=== PATIENT | female | born 1955 | race Caucasian/White ===

== ENCOUNTER 2016-04-14 09:19 | Day surgery (SDC) | payer OTHER ==
[~2016-04-14 09:19] MED LIST: Kenalog-40 IM ONE; LIDOCAINE HCL 2% 100 MG/5 ML IJ ONE; Sensorcaine 0.25% 10 ML IJ ONE
[2016-04-14] MEDS ORDERED: DIPRIVAN 200 MG/20 ML IV ONE (10:00)
[2016-04-14] MEDS ORDERED: Lactated Ringers 1,000 ML IV SCH (10:30)
[2016-04-14] MEDS ORDERED: Lactated Ringers 1,000 ML IV ONE (10:49)
[2016-04-14 11:59] VITALS: BP 112/69; PULSE 84; O2SAT 98
--- NOTE | 2016-04-14 14:06 | XRAY ---
Indication: Left SI injection. Intraoperative fluoroscopy was provided for 25 seconds. 2 digital spot images submitted for interpretation demonstrates a posterior spinal needle with the tip projecting over the left SI joint superiorly. Small amount of contrast injected for needle tip placement. Correlate with intraoperative findings/report.
--- NOTE | 2016-04-14 14:50 | XRAY ---
25 seconds fluoroscopy time in surgery for left S1 ARIES.
== END 2016-04-14 13:45 | disposition home or self-care (01) ==
LOC: SDC-PAIN 09:19
PROVIDERS: ATTEND Pain Medicine Interventional Pain Medicine
DX: M47.816 Spondylosis without myelopathy or radiculopathy, lumbar region (principal); M54.5 Low back pain; M51.36 Other intervertebral disc degeneration, lumbar region; Z79.891 Long term (current) use of opiate analgesic
CPT/HCPCS: 01992; 27096; 72020; 77003; J2704; J3301; Q9967

== ENCOUNTER 2017-04-06 09:37 | Day surgery (SDC) | payer OTHER ==
[2017-04-06] MEDS ORDERED: DIPRIVAN 200 MG/20 ML IV ONE (09:38)
[2017-04-06] MEDS ORDERED: Marcaine 0.5% SDV 10 ML IJ ONE (09:38)
[2017-04-06] MEDS ORDERED: Lactated Ringers 1,000 ML IV ONE (09:38)
[2017-04-06] MEDS ORDERED: Xylocaine 1% Vial 30 ML PF IJ ONE (09:38)
--- NOTE | 2017-04-06 12:54 | XRAY ---
27 seconds fluoroscopy time in surgery for left side L3-5 MBB.
--- NOTE | 2017-04-06 14:13 | XRAY ---
Indication: Left L3-L5 MBB. Intraoperative fluoroscopy was provided for 27 seconds. 3 digital spot images submitted for interpretation demonstrates posterior spinal needle tips projecting over the expected course of the left L3, L4, and L5 nerve roots. Correlate with intraoperative findings/report.
--- NOTE | 2017-04-06 15:18 | OP ---
DATE OF PROCEDURE: 04/06/2017 1202 SURGEON: Nellie Mason D.O. PREOPERATIVE DIAGNOSIS: 1. Degenerative lumbar spine disease, spondylosis, low back pain. POSTOPERATIVE DIAGNOSIS: 1. Degenerative lumbar spine disease, spondylosis, low back pain. PROCEDURE PERFORMED: Left L5, L4, L3 medial branch blocks under fluoroscopic guidance. DESCRIPTION OF THE PROCEDURE: The patient was taken to the operating room and placed in the prone position on the table. Skin at the injection site was prepped and draped in sterile fashion. Under fluoroscopy, bony anatomy of the targeted injection site was visualized. Induction agent was given as per anesthesia while vital signs were monitored. Local anesthetic agent of 2 cc, 1% Lidocaine was introduced to anesthetize the skin and the subcutaneous tissue through the injection site. Under fluoroscopic guidance, a #20 gauge standard spinal needle was advanced into the target medial branch through the oblique approach. 1 cc of 2% preservative-free Lidocaine was injected into each of the targeted medial branch nerve. After the needle was being removed, the skin was cleansed with alcohol and then a bandage was applied. No complications or adverse consequences were observed. The patient was returned to the holding area until stabilized before discharge to home. After the patient has been fully recovered from anesthesia, the patient states 100% pain reduction after this procedure. The patient will be followed up within ten days after the injection for re-evaluation.
== END 2017-04-06 12:55 | disposition home or self-care (01) ==
LOC: SDC-PAIN 09:37
PROVIDERS: ATTEND Internal Medicine
DX: M46.96 Unspecified inflammatory spondylopathy, lumbar region (principal); M54.5 Low back pain; M15.9 Polyosteoarthritis, unspecified; Z79.891 Long term (current) use of opiate analgesic
CPT/HCPCS: 64493; 64494; 72020; 77003; J2001; J2704

== ENCOUNTER 2017-05-11 08:45 | Day surgery (SDC) | payer OTHER ==
[2017-05-11] MEDS ORDERED: Xylocaine-Mpf 2% 5 Ml Vial IJ ONE (08:46)
[2017-05-11] MEDS ORDERED: Marcaine 0.5% SDV 10 ML IJ ONE (08:46)
[2017-05-11] MEDS ORDERED: Ketamine HCl 50 MG/ML IV ONE (08:46)
[2017-05-11] MEDS ORDERED: DIPRIVAN 200 MG/20 ML IV ONE (08:46)
[2017-05-11] MEDS ORDERED: Lactated Ringers 1,000 ML IV ONE (08:46)
--- NOTE | 2017-05-11 10:22 | XRAY ---
25 seconds fluoroscopy time in surgery for left L3-4, L4-5, and L5-S1 MBB.
--- NOTE | 2017-05-11 10:48 | XRAY ---
Indication: Left L3-S1 MBB. Intraoperative fluoroscopy was provided for 25 seconds. 3 digital spot images submitted for interpretation demonstrates posterior spinal needle tips projecting over the left L3/L4/L5 pedicles. Correlate with intraoperative findings/report.
--- NOTE | 2017-05-12 09:51 | OP ---
DATE OF PROCEDURE: 05/11/2017 0957 SURGEON: Nellie Mason D.O. PREOPERATIVE DIAGNOSIS: Degenerative lumbar spine disease, spondylosis, low back pain. POSTOPERATIVE DIAGNOSIS: Degenerative lumbar spine disease, spondylosis, low back pain. PROCEDURE PERFORMED: Left L5, L4, L3 medial branch block under fluoroscopic guidance. DESCRIPTION OF THE PROCEDURE: The patient was taken to the operating room and placed in the prone position on the table. Skin at the injection site was prepped and draped in sterile fashion. Under fluoroscopy, bony anatomy of the targeted injection site was visualized. Induction agent was given as per anesthesia while vital signs were monitored. Local anesthetic agent of 0.5 cc of 1% lidocaine preservative free was introduced to anesthetize the skin and the subcutaneous tissue through the injection site. Under fluoroscopic guidance, a #20 gauge standard spinal needle was advanced into the target medial branch through the oblique approach. The preservative free 0.5 cc of 1% lidocaine and 0.5 cc of 0.25% Marcaine were injected into each of the targeted medial branch nerve. After the needle was being removed, the skin was cleansed with alcohol and then a bandage was applied. No complications or adverse consequences were observed. The patient was returned to the holding area until stabilized before discharge to home. After the procedure the residual pain is 0 out of 10 and there is no muscle weakness after the procedure and the patient is ambulating well. The patient will be followed up within ten days after the injection for re-evaluation.
== END 2017-05-11 10:33 | disposition home or self-care (01) ==
LOC: SDC-PAIN 08:45
PROVIDERS: ATTEND Internal Medicine
DX: M46.96 Unspecified inflammatory spondylopathy, lumbar region (principal); M51.36 Other intervertebral disc degeneration, lumbar region; Z79.891 Long term (current) use of opiate analgesic
CPT/HCPCS: 64493; 64494; 64495; 72020; 76000; J2704

== ENCOUNTER 2017-06-29 12:01 | Day surgery (SDC) | payer OTHER ==
[2017-06-29] MEDS ORDERED: Marcaine 0.5% SDV 10 ML IJ ONE (12:02)
[2017-06-29] MEDS ORDERED: DIPRIVAN 200 MG/20 ML IV ONE (12:02)
[2017-06-29] MEDS ORDERED: Xylocaine 1% Vial 30 ML PF IJ ONE (12:02)
[2017-06-29] MEDS ORDERED: Lactated Ringers 1,000 ML IV ONE (14:54)
--- NOTE | 2017-06-29 16:24 | XRAY ---
Indication: Left L3-L4-L5 RFA. Intraoperative fluoroscopy was provided for 32 seconds. 2 digital spot images submitted for interpretation demonstrates posterior spinal needle tips projecting over the expected course of the left L3, L4, and L5 nerve roots. Correlate with intraoperative findings/report.
--- NOTE | 2017-06-29 16:30 | XRAY ---
32 seconds fluoroscopy time in surgery for left RFA L3-5.
--- NOTE | 2017-06-30 09:04 | OP ---
DATE OF PROCEDURE: 06/29/2017 1410 SURGEON: Nellie Mason D.O. PREOPERATIVE DIAGNOSIS: Degenerative lumbosacral spine disease, spondylosis, low back pain. POSTOPERATIVE DIAGNOSIS: Degenerative lumbosacral spine disease, spondylosis, low back pain. PROCEDURES PERFORMED: Left L5, L4 and L3 medial branch radiofrequency ablation under fluoroscopic guidance. DESCRIPTION OF PROCEDURE: The patient was taken to the operating room and laid in the prone position on the table. The skin over the injection site was prepped and draped in sterile fashion. Under fluoroscopy bony anatomy of the target injection site was visualized. Induction agent was given as per anesthesia while vital signs were monitored. Local anesthetic agent used is 16.5 cc of 1% preservative-free lidocaine and the medication used for radiofrequency ablation is 1.5 cc of preservative-free 0.5% Marcaine was introduced to anesthetize the skin and the subcutaneous tissue through the injection site. Under fluoroscopic guidance a standard size spinal needle with cannula was advanced into the target medial branch nerve as per standard protocol. Before the radiofrequency ablation motor and sensory nerve testing was conducted as per protocol. Under the safety guidance which ensured no motor nerves being involved, L5, L4 and L3 radiofrequency ablation was conducted at 80 degrees Celsius for 90 seconds as per standard protocol. After the spinal needle with the cannula was removed the skin was cleansed with alcohol and then a bandage was applied. No complications or adverse occurrences were observed. The patient was returned to the holding area until stabilized before being discharged to home. The preoperative pain level is 8 out of 10 and the postoperative pain level is 1 out of 10. The patient will be followed up within 10 days after the procedure for re-evaluation.
== END 2017-06-29 14:55 | disposition home or self-care (01) ==
LOC: SDC-PAIN 12:01
PROVIDERS: ATTEND Internal Medicine
DX: M46.95 Unspecified inflammatory spondylopathy, thoracolumbar region (principal); M51.36 Other intervertebral disc degeneration, lumbar region; M54.5 Low back pain; M47.816 Spondylosis without myelopathy or radiculopathy, lumbar region
CPT/HCPCS: 64635; 64636; 72020; 77003; J2001; J2704

== ENCOUNTER 2020-01-30 10:25 | Day surgery (SDC) | payer OTHER ==
[2020-01-30] MEDS ORDERED: Xylocaine 1% Vial 30 ML PF IJ ONE (10:26)
[2020-01-30] MEDS ORDERED: BUPIVACAINE 0.5% VIAL IJ ONE (10:26)
[2020-01-30] MEDS ORDERED: Depo-Medrol 40 MG/ML IM ONE (10:26)
[2020-01-30] MEDS ORDERED: DIPRIVAN 200 MG/20 ML IV ONE (12:29)
[2020-01-30] MEDS ORDERED: Ketamine HCl 50 MG/ML ONE (12:30)
--- NOTE | 2020-01-30 13:40 | XRAY ---
Indication: Left L4-S1 RFA. Intraoperative fluoroscopy was provided for 22 seconds. 3 digital spot images submitted for interpretation demonstrates posterior needle tips projecting over the expected left L4-S1 nerve roots. Correlate with intraoperative findings/report.
--- NOTE | 2020-01-30 13:49 | XRAY ---
22 seconds fluoroscopy time in surgery for left L4-S1 RFA.
[2020-01-30] MEDS ORDERED: Lactated Ringers 1,000 ML IV ONE (15:30)
== END 2020-01-30 13:02 | disposition home or self-care (01) ==
LOC: SDC-PAIN 10:25
PROVIDERS: ATTEND Psychiatry & Neurology Pain Medicine
DX: M47.817 Spondylosis without myelopathy or radiculopathy, lumbosacral region (principal); I10 Essential (primary) hypertension; E03.9 Hypothyroidism, unspecified; L40.9 Psoriasis, unspecified; F41.8 Other specified anxiety disorders; Z79.899 Other long term (current) drug therapy
CPT/HCPCS: 64635; 64636; 72100; 77002; J1030; J2001; J2704

== ENCOUNTER 2020-02-06 10:50 | Day surgery (SDC) | payer OTHER ==
[2020-02-06] MEDS ORDERED: DIPRIVAN 200 MG/20 ML IV ONE (12:03)
[2020-02-06] MEDS ORDERED: Ketamine HCl 50 MG/ML ONE (12:03)
--- NOTE | 2020-02-06 15:02 | XRAY ---
Indication: Right L4-S1 RFA. Intraoperative fluoroscopy was provided for 24 seconds. 3 digital spot images submitted for interpretation demonstrates posterior needle tips projecting over the expected right L4-S1 nerve roots. Correlate with intraoperative findings/report.
--- NOTE | 2020-02-06 15:21 | XRAY ---
24 seconds fluoroscopy time in surgery for right L4-S1 RFA.
[2020-02-06] MEDS ORDERED: Lactated Ringers 1,000 ML IV ONE (16:05)
== END 2020-02-06 12:42 | disposition home or self-care (01) ==
LOC: SDC-PAIN 10:50
PROVIDERS: ATTEND Psychiatry & Neurology Pain Medicine
DX: M47.816 Spondylosis without myelopathy or radiculopathy, lumbar region (principal); I10 Essential (primary) hypertension; E03.9 Hypothyroidism, unspecified; L40.9 Psoriasis, unspecified; F41.8 Other specified anxiety disorders; Z79.899 Other long term (current) drug therapy
CPT/HCPCS: 64635; 64636; 72100; 77002; J2704

== ENCOUNTER 2020-03-26 10:05 | Day surgery (SDC) | payer OTHER ==
[2020-03-26] MEDS ORDERED: Xylocaine 1% Vial 30 ML PF IJ ONE (10:06)
[2020-03-26] MEDS ORDERED: BUPIVACAINE 0.5% VIAL IJ ONE (10:06)
[2020-03-26] MEDS ORDERED: Decadron 4 MG INJ IV ONE (10:06)
[2020-03-26] MEDS ORDERED: Depo-Medrol 40 MG/ML IM ONE (10:06)
[2020-03-26] MEDS ORDERED: Ketamine HCl 50 MG/ML ONE (12:40)
[2020-03-26] MEDS ORDERED: DIPRIVAN 200 MG/20 ML IV ONE (12:40)
--- NOTE | 2020-03-26 14:19 | XRAY ---
Indication: Left SI joint and piriformis muscle injection. Intraoperative fluoroscopy was provided for 37 seconds. 3 digital spot images obtained prone submitted for interpretation demonstrates posterior needle tip projecting over the inferior left SI joint. Second needle tip projects over the expected left piriformis muscle with small amount of contrast injected for needle tip placement. Correlate with intraoperative findings/report.
--- NOTE | 2020-03-26 14:21 | XRAY ---
37 seconds fluoroscopy time in surgery for left SI joint and left piriformis muscle injections.
[2020-03-26] MEDS ORDERED: Lactated Ringers 1,000 ML IV ONE (14:38)
== END 2020-03-26 13:06 | disposition home or self-care (01) ==
LOC: SDC-PAIN 10:05
PROVIDERS: ATTEND Psychiatry & Neurology Pain Medicine
DX: M46.1 Sacroiliitis, not elsewhere classified (principal); M79.18 Myalgia, other site; I10 Essential (primary) hypertension; E03.9 Hypothyroidism, unspecified; F41.8 Other specified anxiety disorders; L40.9 Psoriasis, unspecified; Z79.899 Other long term (current) drug therapy
CPT/HCPCS: 20552; 27096; 72202; 77002; G0260; J1030; J1100; J2001; J2704; Q9966

== ENCOUNTER 2020-05-28 11:18 | Day surgery (SDC) | payer OTHER ==
[2020-05-28] MEDS ORDERED: BUPIVACAINE 0.5% VIAL IJ ONE (11:19)
[2020-05-28] MEDS ORDERED: Depo-Medrol 40 MG/ML IM ONE (11:19)
[2020-05-28] MEDS ORDERED: DIPRIVAN 200 MG/20 ML IV ONE (12:57)
[2020-05-28] MEDS ORDERED: Ketamine HCl 50 MG/ML ONE (12:57)
[2020-05-28] MEDS ORDERED: Lactated Ringers 1,000 ML IV ONE (13:52)
--- NOTE | 2020-05-28 14:01 | XRAY ---
12 seconds fluoroscopy time in surgery for injection of the greater trochanteric bursa of the left hip.
--- NOTE | 2020-05-28 14:01 | XRAY ---
Indication: Right hip injection. Intraoperative fluoroscopy provided for 10 seconds. Single digital spot image submitted for interpretation demonstrate needle tip projecting just lateral to the right greater trochanter. Small amount of contrast injected for needle tip placement. Correlate with intraoperative findings/report.
--- NOTE | 2020-05-28 14:01 | XRAY ---
10 seconds fluoroscopy time in surgery for injection of the greater trochanteric bursa of the right hip.
--- NOTE | 2020-05-28 14:11 | XRAY ---
Indication: Left hip injection. Intraoperative fluoroscopy provided for 12 seconds. Single digital spot image submitted for interpretation demonstrate needle tip projecting just lateral to the left greater trochanter. Small amount of contrast injected for needle tip placement. Correlate with intraoperative findings/report.
== END 2020-05-28 13:28 | disposition home or self-care (01) ==
LOC: SDC-PAIN 11:18
PROVIDERS: ATTEND Psychiatry & Neurology Pain Medicine
DX: M70.62 Trochanteric bursitis, left hip (principal); M70.61 Trochanteric bursitis, right hip; I10 Essential (primary) hypertension; L40.9 Psoriasis, unspecified; F41.8 Other specified anxiety disorders; Z79.899 Other long term (current) drug therapy
CPT/HCPCS: 20610; 73501; 77002; J1030; J2704; Q9966

== ENCOUNTER 2020-08-13 12:39 | Day surgery (SDC) | payer OTHER ==
[2020-08-13] MEDS ORDERED: Xylocaine 1% Vial 30 ML PF IJ ONE (12:40)
[2020-08-13] MEDS ORDERED: Decadron 4 MG INJ IV ONE (12:40)
[2020-08-13] MEDS ORDERED: BUPIVACAINE 0.5% VIAL IJ ONE (12:40)
[2020-08-13] MEDS ORDERED: Depo-Medrol 40 MG/ML IM ONE (12:40)
[2020-08-13] MEDS ORDERED: DIPRIVAN 200 MG/20 ML IV ONE (14:19)
[2020-08-13] MEDS ORDERED: Lactated Ringers 1,000 ML IV ONE (16:30)
--- NOTE | 2020-08-14 11:35 | XRAY ---
8 seconds fluoroscopy time in surgery for injection of the right SI joint.
--- NOTE | 2020-08-14 11:44 | XRAY ---
8 seconds fluoroscopy time in surgery for injection of the right piriformis muscle.
== END 2020-08-13 14:40 | disposition home or self-care (01) ==
LOC: SDC-PAIN 12:39
PROVIDERS: ATTEND Psychiatry & Neurology Pain Medicine
DX: M46.1 Sacroiliitis, not elsewhere classified (principal); I10 Essential (primary) hypertension; L40.9 Psoriasis, unspecified; E03.9 Hypothyroidism, unspecified; F41.9 Anxiety disorder, unspecified; F32.9 Major depressive disorder, single episode, unspecified; Z79.899 Other long term (current) drug therapy
CPT/HCPCS: 20552; 27096; 72020; 77002; G0260; J1030; J1100; J2001; J2704; Q9966

== ENCOUNTER 2020-12-03 10:04 | Day surgery (SDC) | payer OTHER ==
[2020-12-03] MEDS ORDERED: Xylocaine 1% Vial 30 ML PF IJ ONE (10:05)
[2020-12-03] MEDS ORDERED: Depo-Medrol 40 MG/ML IM ONE (10:05)
[2020-12-03] MEDS ORDERED: BUPIVACAINE 0.5% VIAL IJ ONE (10:05)
[2020-12-03] MEDS ORDERED: DIPRIVAN 200 MG/20 ML IV ONE (12:44)
--- NOTE | 2020-12-03 13:54 | XRAY ---
37 seconds fluoroscopy time in surgery for injections of the right intra-articular space and sub trochanteric bursa of the right hip.
--- NOTE | 2020-12-03 13:54 | XRAY ---
Indication: Right hip and greater trochanter bursa injections. Intraoperative fluoroscopy provided for 37 seconds. 2 digital spot image submitted for interpretation demonstrate needle tip lateral to the right femur neck and greater trochanter. Small amount of contrast injected for both needle tip placement. Correlate with intraoperative findings/report.
[2020-12-03] MEDS ORDERED: Lactated Ringers 1,000 ML IV ONE (15:27)
== END 2020-12-03 13:12 | disposition home or self-care (01) ==
LOC: SDC-PAIN 10:04
PROVIDERS: ATTEND Psychiatry & Neurology Pain Medicine
DX: M16.11 Unilateral primary osteoarthritis, right hip (principal); M70.61 Trochanteric bursitis, right hip; Z79.899 Other long term (current) drug therapy
CPT/HCPCS: 20610; 73502; 77002; J1030; J2001; J2704; Q9966